=== PATIENT | female | born 1980 | race Caucasian/White ===

== ENCOUNTER 2021-11-08 19:27 | Emergency (ER) | payer BC ==
--- NOTE | 2021-11-08 19:50 | EDM.PDOC ---
ED HPI GENERAL MEDICAL PROBLEM - General Chief Complaint: Genitourinary Problem Stated Complaint: ABD/BACK PAIN Time Seen by Provider: 11/08/21 19:50 - History of Present Illness INITIAL COMMENTS - FREE TEXT/NARRATIVE: 41-year-old female presents the emergency room with burning frequency and discomfort with urination. She is also had some left lower quadrant discomfort that reminds her of of pain she has had in the past with an ovarian cyst. Patient's had a hysterectomy. She has had some intermittent bleeding with her urine. This was noted yesterday none today. Yesterday the patient started on Azo and thinks to be doing a little bit better. Today is her last day. The patient also has a concerning sexual exposure and request to be checked. She is not aware of any fevers or chills she has had a little bit of flank pain on the left side. She does state her urine is orange most likely due to the Azo. - Related Data Allergies Allergy/AdvReac Type Severity Reaction Status Date / Time acetaminophen [From Vicodin] Allergy Cannot Verified 11/08/21 19:43 Remember hydrocodone [From Vicodin] Allergy Cannot Verified 11/08/21 19:43 Remember Sulfa (Sulfonamide Allergy Cannot Verified 11/08/21 19:43 Antibiotics) Remember sulfate ion Allergy Cannot Verified 11/08/21 19:43 Remember Home Meds: Home Meds Cefdinir [Omnicef] 300 mg PO BID #12 cap 11/08/21 [Rx] Cranberry 400 mg PO DAILY 11/08/21 [History] Cyclobenzaprine [Flexeril] 10 mg PO BEDTIME 11/08/21 [History] Levothyroxine 175 mcg PO DAILY 11/08/21 [History] Montelukast [Singulair] 10 mg PO DAILY 11/08/21 [History] Topiramate [Topamax] 100 mg PO BID 11/08/21 [History] Social & Family History - Tobacco Use Tobacco Use Status *Q: Never Tobacco User Second Hand Smoke Exposure: No - Recreational Drug Use Recreational Drug Use: No ED ROS GENERAL - Review of Systems Review Of Systems: See Below Constitutional: Denies: Fever, Chills, Malaise, Weakness, Fatigue HEENT: Reports: No Symptoms Respiratory: Reports: No Symptoms Cardiovascular: Reports: No Symptoms GI/Abdominal: Reports: Abdominal Pain (Left lower quadrant in the pelvis) : Reports: Dysuria, Frequency, Hematuria Musculoskeletal: Reports: No Symptoms Skin: Reports: No Symptoms Neurological: Reports: No Symptoms Psychiatric: Reports: No Symptoms ED EXAM, GENERAL - Physical Exam Exam: See Below Exam Limited By: No Limitations General Appearance: Alert, No Apparent Distress Head: Atraumatic, Normocephalic Neck: Normal Inspection, Supple, Non-Tender, Full Range of Motion Respiratory/Chest: No Respiratory Distress, Lungs Clear, Normal Breath Sounds, No Accessory Muscle Use, Chest Non-Tender Cardiovascular: Normal Peripheral Pulses, Regular Rate, Rhythm, No Edema, No Gallop, No JVD, No Murmur, No Rub GI/Abdominal: Normal Bowel Sounds, Soft, No Organomegaly, No Distention, No Abnormal Bruit, No Mass, Other (Leg discomfort in the left pelvis area in the vicinity of the ovary) (Female) Exam: Normal Speculum Exam, Normal Bimanual Exam Back Exam: Normal Inspection. No: CVA Tenderness (L), CVA Tenderness (R) Extremities: Normal Inspection, Normal Range of Motion, Non-Tender, Normal Capillary Refill, No Pedal Edema Neurological: Alert, Oriented, CN II-XII Intact, Normal Cognition, Normal Gait, Normal Reflexes, No Motor/Sensory Deficits Course - Vital Signs Last Recorded V/S: Last Vital Signs Temp 36.6 C 11/08/21 19:40 Pulse 95 11/08/21 19:40 Resp 16 11/08/21 19:40 BP 120/104 H 11/08/21 19:40 Pulse Ox 97 11/08/21 19:40 - Orders/Labs/Meds Orders: Active Orders 24 hr Category Date Time Status CULTURE URINE [MREF] Stat Lab 11/08/21 20:23 Received Labs: Laboratory Tests 11/08/21 11/08/21 Range/Units 20:23 20:23 Urine Color Ages [place] H (Yellow) Urine Appearance Slt cloudy H (Clear) Urine pH 5.0 (5.0-8.0) Ur Specific [place] > or = 1.030 (1.005-1.030) Urine Protein Negative (Negative) Urine Glucose (UA) Negative (Negative) Urine Ketones Negative (Negative) Urine Occult Blood 2+ H (Negative) Urine Nitrite Positive H (Negative) Urine Bilirubin Negative (Negative) Urine Urobilinogen 1.0 (0.2-1.0) Ur Leukocyte Esterase Negative (Negative) Urine RBC 5-10 H (0-5) /hpf Urine WBC 0-5 (0-5) /hpf Ur Squamous Epith Cells 20-30 H (0-5) /hpf Urine Bacteria Few (FEW) /hpf Urine Mucus Few (FEW) /hpf C trachomatis DNA (PCR) Not detected N gonorrhoeae DNA (PCR) Not detected - Re-Assessments/Exams Free Text/Narrative Re-Assessment/Exam: 11/08/21 20:06 The patient just came into town today from [place] she is here for a week to do some work follow-up could be difficult. Patient is on day 2 of Azo has symptoms that sound consistent with a UTI she is worried about an STD. We will check a urine and GC and chlamydia albeit these could be blunted with the Azo on board. Discussed further evaluation at this point the patient agrees that looking for an ovarian cyst she has had many in the past they go away without difficulty is probably of no benefit. 11/08/21 22:36 Urinalysis is possibly suggestive of a UTI however Azo on board. GC and Chlamydia are negative this could be blunted because of the Azo. I have discussed the situation with the patient and think is reasonable to treat her for urinary tract infection if symptoms persist and she has any gynecologic issues repeat GC and chlamydia as well as other STDs should be checked the patient denies any vaginal discharge drainage discomfort or pelvic pain at this time Departure - Departure Time of Disposition: 22:39 Disposition: Home, Self-Care 01 Clinical Impression: UTI (urinary tract infection) - Discharge Information Referrals: PCP,Not In Area [Primary Care Provider] - Forms: ED Department Discharge Additional Instructions: Return to the emergency room with any questions problems or worsening symptoms. You were tested for urinary tract infection as well as a a couple STDs. Testing was inconclusive as the Azo you have been taking can blunt the effectiveness of urinary testing as well as culture and sensitivity based on your symptoms you probably do have a bladder infection and will be treated as such. If you ever develop symptoms as STD unusual vaginal discharge or worsening pelvic pain this needs to be retested. You are started on cefdinir, this is an antibiotic you take 1 twice daily you are given 2 pills from the emergency room the first dose should have been taking here in the emergency room and you have 1 to take tomorrow morning. 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 Sepsis Event Note (ED) - Evaluation Sepsis Screening Result: No Definite Risk - Focused Exam Vital Signs: Vital Signs Temp Pulse Resp BP Pulse Ox 11/08/21 19:40 36.6 C 95 16 120/104 H 97 - My Orders Last 24 Hours: My Active Orders 11/08/21 20:23 CULTURE URINE [MREF] Stat - Assessment/Plan Last 24 Hours: My Active Orders 11/08/21 20:23 CULTURE URINE [MREF] Stat
[2021-11-08 22:11] LABS: C. TRACHOMATIS BY PCR NOT DETECTED; N. GONORRHOEAE BY PCR NOT DETECTED
[2021-11-08] MEDS ORDERED: Cefdinir 300 MG Cap PO ONE (22:34)
== END 2021-11-08 22:56 | disposition home or self-care (01) ==
LOC: JD.ED 19:27
DX: N39.0 Urinary tract infection, site not specified (principal); Z90.710 Acquired absence of both cervix and uterus; Z88.8 Allergy status to other drugs, medicaments and biological substances; Z88.5 Allergy status to narcotic agent; Z88.2 Allergy status to sulfonamides
CPT/HCPCS: 81001; 87086; 87491; 87591; 99283; A9270